=== PATIENT | male | born 1995 | race Caucasian/White ===

== ENCOUNTER → 2021-07-12 | Outpatient (CLI) | payer BC ==
--- NOTE | 2021-07-13 03:33 | MR ---
EXAMINATION TYPE: MR lumbar spine wo con DATE OF EXAM: 07/12/2021 COMPARISON: 11/19/2020 HISTORY: Low back pain, l4-5 cage Multiplanar multiecho imaging of the lumbar spine without contrast. Fairly normal alignment. There is old posterior fusion surgery at L5-S1 with metal artifact. There is some degenerative mild disc space narrowing at L4-5 and L5-S1 with decreased signal in the disks. Th ere is no lumbar compression fracture. There is small posterior disc bulging at L4-5. There is some m ild lateral recess stenosis due to facet arthropathy at L4-5. Lumbar nerve roots appear normal. There is no paraspinal mass. There is no evidence of focal bone destruction. IMPRESSION: Previous surgery. Spondylotic changes at L4-5 and L5-S1. Mild lateral recess stenosis due to facet ar thropathy at L4-5. No significant change compared to old exam.
== END | disposition home or self-care (01) ==
LOC: RADMRIMAIN 16:32
PROVIDERS: ATTEND Orthopaedic Surgery
DX: M48.061 Spinal stenosis, lumbar region without neurogenic claudication (principal); M46.96 Unspecified inflammatory spondylopathy, lumbar region
CPT/HCPCS: 72148

== ENCOUNTER → 2022-07-12 | Outpatient (CLI) | payer BC ==
[2022-07-12 23:08] LABS: Basophils # (A) 0.05 X 10*3/uL (0.00-0.10); Basophils % (A) 0.7 %; Eosinophils # (A) 0.13 X 10*3/uL (0.04-0.35); Eosinophils % (A) 1.9 %; HCT 47.3 % (39.6-50.0); HGB 15.8 g/dL (13.0-17.0); Immature Grans, Automated 0.4 %; Lymphocytes # (A) 2.74 X 10*3/uL (0.90-5.00); Lymphocytes % (A) 39.1 %; MCH 29.7 pg (27.0-32.0); MCHC 33.4 g/dL (32.0-37.0); MCV 88.9 fL (80.0-97.0); Mean Platelet Volume 9.5 fL (9.5-12.2); Monocytes # (A) 0.52 X 10*3/uL (0.20-1.00); Monocytes % (A) 7.4 %; NRBC Per 100 WBC 0 /100 WBCS (0.0-0.0); Neutrophils # (A) 3.53 X 10*3/uL (1.80-7.70); Neutrophils % (A) 50.5 %; Platelet Count 300 X 10*3/uL (140-440); RBC 5.32 X 10*6/uL (4.40-5.60); RDW 12.2 % (11.5-14.5)
== END | disposition home or self-care (01) ==
LOC: LABPAT 16:05
PROVIDERS: ATTEND Surgery
DX: Z01.812 Encounter for preprocedural laboratory examination (principal); K40.90 Unilateral inguinal hernia, without obstruction or gangrene, not specified as recurrent
CPT/HCPCS: 85025

== ENCOUNTER → 2022-12-19 | Outpatient (CLI) | payer BC ==
--- NOTE | 2022-12-19 08:23 | US ---
EXAMINATION TYPE: US groin RT DATE OF EXAM: 12/19/2022 COMPARISON: NONE CLINICAL INDICATION: Male, 27 years old with history of R10.31; recent hernia repair on the left. On the right. TECHNIQUE: Multiple sonographic images of the right inguinal region without and with Valsalva maneuv er. Comparison images to the contralateral side. FINDINGS: No discrete inguinal hernia is identified on the right side. Valsalva maneuver was utilize d. No abnormal anterior bulging. No residual hernia identified on the contralateral comparison side. IMPRESSION: No inguinal hernia demonstrated by ultrasound at this time.
== END | disposition home or self-care (01) ==
LOC: RADUSWWP 07:56
PROVIDERS: ATTEND Family Medicine
DX: R10.31 Right lower quadrant pain (principal)

== ENCOUNTER → 2023-01-10 | Outpatient (CLI) | payer BC ==
--- NOTE | 2023-01-10 09:32 | CT ---
EXAMINATION TYPE: CT abdomen pelvis w con DATE OF EXAM: 01/10/2023 COMPARISON: NONE HISTORY: 27-year-old male K57.32, LLQ pain TECHNIQUE: Contiguous axial scanning of the abdomen and pelvis following administration of 100 ml Iso bree 300 IV contrast. Coronal/sagittal reconstructions performed. CT DLP: 363.4 mGycm Automated exposure control for dose reduction was used. FINDINGS: LUNG BASES: No significant abnormality is appreciated. LIVER/GB: No significant abnormality is appreciated. PANCREAS: No significant abnormality is seen. SPLEEN: No significant abnormality is seen. ADRENALS: No significant abnormality is seen. KIDNEYS: No significant abnormality is seen. BOWEL: No dilated small bowel, free fluid, or free air. There is limitation in assessment of the lowe r abdomen and pelvis due to patient breathing at this point in the scan. There seems to be some mild circumferential wall thickening along the length of the sigmoid colon, axial image 62 and 66. Moderat e stool distention distal sigmoid colon and rectum. No significant pericolonic inflammatory change. N o significant diverticular change is seen. Normal appendix. LYMPH NODES: No significant abnormality is seen. OTHER: Suspect prior left inguinal hernia mesh repair. Otherwise, no significant abnormality is seen. PELVIS: Borderline enlarged at 4.2 cm. Right-sided pelvic phleboliths. No abnormal fluid collection i n the pelvis or pelvic lymphadenopathy. BONES: Status post L5-S1 anterior and posterior lumbar fusion change. IMPRESSION: 1. MODERATE STOOL WITHIN THE DISTAL SIGMOID AND RECTUM. 2. BREATHING MOTION CAUSING SOME LIMITATION IN ASSESSMENT OF THE LOWER ABDOMEN AND PELVIS. THERE SEEM S TO BE MILD CIRCUMFERENTIAL WALL THICKENING ALONG THE LENGTH OF THE SIGMOID COLON THAT COULD REPRESE NT A NONSPECIFIC MILD COLITIS. NO SIGNIFICANT DIVERTICULOSIS OR EVIDENCE OF ACUTE DIVERTICULITIS. 3. PRIOR LEFT INGUINAL MESH REPAIR.
== END | disposition home or self-care (01) ==
LOC: RADCTMAIN 07:10
PROVIDERS: ATTEND Surgery
DX: K40.90 Unilateral inguinal hernia, without obstruction or gangrene, not specified as recurrent (principal); K57.32 Diverticulitis of large intestine without perforation or abscess without bleeding
CPT/HCPCS: 74177; Q9967

== ENCOUNTER → 2023-03-28 | Outpatient (CLI) | payer BC ==
--- NOTE | 2023-03-28 13:08 | MR ---
Site of the power issues so chemotherapy will check related to EXAMINATION TYPE: MR lumbar spine wo c on DATE OF EXAM: 03/28/2023 12:28 PM COMPARISON 07/12/21 HISTORY: Low back pain, hx of L4 surgery of the lumbar spine was performed. L1-L2: Normal disc appearance without desiccation. No herniation, protrusion or disc bulging. No ca nal stenosis is present. Foramina are patent bilaterally. L2-L3: Normal disc appearance without desiccation. No herniation, protrusion or disc bulging. No ca nal stenosis is present. Foramina are patent bilaterally. L3-L4: Normal disc appearance without desiccation. Mild posterior disc bulging. No evidence of hernia tion or central stenosis. No canal stenosis is present. Foramina are patent bilaterally. L4-L5: Mild disc desiccation noted with posterior disc bulge and annular tear mild effacement of vent ral thecal sac. Mild bilateral lateral recess stenosis. No evidence for central stenosis. L5-S1: Fusion L5-S1 with pedicular screws in place . No evidence for recurrent process. No central s tenosis or foraminal encroachment. Normal postoperative alignment. Lumbar segments are intact. No paraspinal masses are identified. Conus medullaris has a normal appe arance. IMPRESSION: 1. Stable postoperative changes at L5-S1. 2. Disc desiccation with annular tear and disc bulging at L4-5 and bilateral lateral recess stenosis.
== END | disposition home or self-care (01) ==
LOC: RADMRIMAIN 11:22
PROVIDERS: ATTEND Orthopaedic Surgery
DX: M48.061 Spinal stenosis, lumbar region without neurogenic claudication (principal); M51.36 Other intervertebral disc degeneration, lumbar region
CPT/HCPCS: 72148

== ENCOUNTER → 2023-06-10 | Outpatient (CLI) | payer BC ==
[2023-06-10 14:25] VITALS: BP 145/91; PULSE 66; RESP 16
--- NOTE | 2023-06-10 14:26 | P.PAINPG ---
PQRS Measure Charge Sheet Comment: HISTORY OF PRESENT ILLNESS: A 27 yr old male as a referral from Dr Aldridge presents today w severe and chronic LBP x 5 mo secondary to for evaluation. Pt states pain level is provoked at 8/10 in intensity, constant, localized in the lower lumbar spine, predominantly axial, stabbing in character w occasional shooting pain towards the R hip, buttocks an RLE. Pain is provoked by sitting for periods of 30 min or more. Pain is alleviated by PT in 2019, physician guided home exercises/ stretches 5 times weekly since 2019, heat, ice, medications (Ibu), repositioning and rest. Oswestry axial pain score at 19. PMH: OA PSH: Colonoscopy (2022, L Inguinal Hernia Repair (2022), L5-S1 Fusion/ Hardware, RUE Fracture/ Resetting SH: Negative x3 FH: Non contributory All: See list Meds: See list REVIEW OF ORGAN SYSTEMS: CONSTITUTIONAL: No fevers or chills. No recent weight loss. NEUROLOGICAL: + numbness and tingling along the distal extremities. No seizure disorders or headaches. MUSCULOSKELETAL: + pain PSYCHIATRIC: Denies current depression or suicidal thoughts. Physical Examinations : Constitutional : Cooperative , not in acute distress . Neurologic : Cranial nerve II to XII intact. No focal neurological deficits. Psychiatric : alert & oriented x 3. Matching mood & appropriate affect. Judgment & insight intact. Musculoskeletal : Cervical Spine Motor strength in the deltoid and biceps: Normal right side. Normal Left side Motor strength biceps and the wrist extensors: Normal right side . Normal left side Motor strength in the triceps muscle: Normal right side. Normal left side Deep tendon reflexes: Normal at the biceps. Normal at Brachioradialis. Normal at triceps Vertebral body tenderness to deep palpation over Cervical facet loading test: positive bilaterally Spurling test: positive bilaterally Neck distraction test: positive bilaterally Mitch sign: positive bilaterally Lumbar spine Motor strength lower extremities ,thigh and legs 5/5 Right side , 5/5 Left side Deep tendon reflexes : Normal Knee Jerk. Normal Ankle Jerk Vertebral body tenderness over L4 Butterfield Test positive Lumbar facet Loading Test: positive Right / positive Left Range of motion of the lumbar spine Flexion 30 degrees, extension 10 degrees Straight Leg Raise test: Left/ Right positive at <40 degrees Lety test: positive right / positive left. Severe tenderness over the Sacroiliac joint on the Right / Left sides Gaenslen test: positive bilaterally Seated flexion test: positive bilaterally. Sacral spine : Severe tenderness over the Sacroiliac joint: right side / left side Range of motion: Flexion of the lumbar spine <60 degrees Range of motion: Extension of the lumbar spine <20 degrees Gaenslen's Test positive Lety test: positive right side / left side Thigh Thrust Test Sacral Thrust Test Imaging: MRI noncontrast of the lumbar spine from 03/28/23 reviewed Assessment/ Plan : Lumbar DDD Recommendation o f MICHELLE L4-L5 #1. May need a series of injections for optimal pain relief. Risks, benefits of procedure discussed and patient verbalized understanding. Admits to anti- coagulant use or medical history of diabetes. Protocol for discontinuation/ continuation of medications sarah procedure discussed. All questions answered. I have spent greater than 30 minutes on patient care today. Dr Cox was available by phone for the evaluation of this patient. The time was used to review the medical records including relevant urine studies and Prescription history (MAPs), review of the available imaging, evaluation and examination of the patient, coordination of care with the medical staff and if applicable referring physicians, as well as creation of the medical record Home Medications: Ambulatory Orders Ibuprofen [Motrin] 800 mg PO HS PRN 07/17/22 Controlled Substance Measures - Controlled Substance Measures Is patient prescribed a controlled substance at discharge?: No
== END ==
LOC: PNWHC3 13:58
PROVIDERS: ATTEND Specialist
DX: M51.16 Intervertebral disc disorders with radiculopathy, lumbar region (principal); M19.90 Unspecified osteoarthritis, unspecified site
CPT/HCPCS: 99211

== ENCOUNTER → 2023-06-12 | Outpatient (CLI) | payer BC ==
--- NOTE | 2023-06-13 09:33 | MR ---
EXAMINATION TYPE: MR lumbar spine wo con DATE OF EXAM: 06/12/2023 8:12 AM CLINICAL INDICATION:Male, 27 years old with history of M54.50 low back pain; Lower back pain, into bu ttocks and down right leg. Hx surgery. COMPARISON: None TECHNIQUE: Multi planar, multi sequence imaging was performed utilizing: T1-weighted, T2-weighted, a nd turbo inversion recovery imaging of the lumbar spine. IV Contrast: cc . (None if empty) FINDINGS: Alignment: The lumbar vertebral bodies have preserved heights and alignment. Cord: The conus medullaris and the distal spinal cord appear unremarkable with regards to their signa l intensity and morphology. Bones/Discs: Postsurgical changes with fixation hardware L5-S1. There is discectomy changes also pres ent. Multilevel degeneration with osteophyte formation and facet joint arthropathy. Mild disc desicca tion most pronounced at L4-L5. T12-L1: No evidence of significant spinal canal stenosis or neural foraminal stenosis. L1-L2: No evidence of significant spinal canal stenosis or neural foraminal stenosis. L2-L3: No evidence of significant spinal canal stenosis or neural foraminal stenosis. L3-L4: Central disc protrusion with out significant spinal canal stenosis. The neural foramen are pat ent. L4-L5: Disc bulge and facet joint arthropathy result in mild spinal canal and mild bilateral neural f oraminal stenosis. L5-S1: Post fixation changes. Discectomy changes noted. Facet joint arthropathy without significant n eural foraminal stenosis. The spinal canal is patent. No significant spinal canal or neural foraminal stenosis in the remainder of the visualized levels. Other findings: None. IMPRESSION: 1. L3-L4 central disc protrusion without significant spinal canal stenosis. 2. Post fixation changes at L5-S1 without significant spinal canal or neural foraminal stenosis. 3. No evidence of fracture.
== END | disposition home or self-care (01) ==
LOC: RADMRIMAIN 07:37
PROVIDERS: ATTEND Orthopaedic Surgery
DX: M51.26 Other intervertebral disc displacement, lumbar region (principal); Z98.890 Other specified postprocedural states
CPT/HCPCS: 72148

== ENCOUNTER 2023-06-19 06:27 | Day surgery (SDC) | payer BC ==
[2023-06-19] MEDS ORDERED: LACTATED RINGERS 1,000 ML IV SCH (06:43)
[2023-06-19 06:52] VITALS: TEMP 97.4
[2023-06-19] MEDS ORDERED: methylPREDNISolone ACETATE 80 MG/ML 1 ML VIAL ONE (07:12)
[2023-06-19] MEDS ORDERED: IOPAMIDOL M300 15ML VIAL ONE (07:12)
[2023-06-19] MEDS ORDERED: ROPIVACAINE 5MG/ML 20ML VIAL ONE (07:12)
--- NOTE | 2023-06-19 07:36 | P.PCN ---
Description of Procedure: Preprocedure diagnosis. Post laminectomy syndrome. Lumbar radiculopathy. Postprocedure diagnosis. As above. Procedure done. Injection of radial contrast material into the caudal epidural space. Caudal epidurogram, interpretation of caudal epidurogram, caudal epidural steroid injection under fluoroscopic guidance. Anesthesia. Local infiltration with local anesthetics. In OR, continuous pulse ox, EKG, blood pressure and verbal communication was maintained. Blood loss. None. Indication. Discussed with the patient procedure, alternatives, complications which may including infection bleeding and nerve damage aggravation of pain all of which could be permanent. Patient understands and questions were answered. Procedure note. After getting consent patient in OR in prone position. Back prepped with chlorhexidine 3 times and draped in sterile fashions. 10 mL of 1% lidocaine injected subcutaneously. Under AP and crosstable lateral view of the fluoroscope, 20-gauge Tuohy needle was introduced through the sacral hiatus into caudal epidural space. After needle position confirmation by AP and crosstable lateral view, 5 mL of Omnipaque 300 radiocontrast material injected which was noted into the caudal epidural space. No contrast was noted into the intrathecal or intravascular space. After repeat negative aspiration 10 mL of solution injected which consists of 9 mL of preservative-free normal saline mixed with 1 mL of 80 mg Depo-Medrol. Tuohy needle was taken out and bandages applied. Disposition. Patient tolerated the procedure well. No complication. Discharged home in stable condition.
[2023-06-19 08:03] VITALS: BP 124/74; PULSE 63; RESP 20
--- NOTE | 2023-06-19 12:36 | FL ---
EXAMINATION TYPE: FL guided pain mgmt statistic DATE OF EXAM: 06/19/2023 FLUOROSCOPY Fluoroscopy time of 5 seconds was used during a caudal injection. 2 image/s document/s the procedure . [id number] mGym2
== END 2023-06-19 08:00 ==
LOC: ORPAIN 06:27
PROVIDERS: ATTEND Pain Medicine Interventional Pain Medicine
DX: M96.1 Postlaminectomy syndrome, not elsewhere classified (principal); M54.16 Radiculopathy, lumbar region
CPT/HCPCS: 62323; J1040; Q9967; J2795

== ENCOUNTER → 2023-07-03 | Outpatient (CLI) | payer BC ==
[2023-07-03 17:24] LABS: Egg White IgE <0.10 kU/L; Peanut IgE <0.10 kU/L; Shrimp IgE <0.10 kU/L; Soybean IgE <0.10 kU/L; Walnut IgE (Food) <0.10 kU/L
[2023-07-04 11:49] LABS: Crab IgE <0.10 kU/L (<0.10); Crab IgE Class CLASS 0; Lettuce IgE Class CLASS 0; Pork IgE Class CLASS 0
[2023-07-04 11:50] LABS: Beef IgE <0.10 kU/L (<0.10); Beef IgE Class CLASS 0; Potato IgE <0.10 kU/L (<0.10); Potato IgE Class CLASS 0
[2023-07-04 11:51] LABS: Onion IgE <0.10 kU/L (<0.10); Onion IgE Class CLASS 0; Salmon IgE <0.10 kU/L (<0.10); Salmon IgE Class CLASS 0; Yeast Bakers/Brew IgE <0.10 kU/L (<0.10); Yeast Bakers/Brew IgE Class CLASS 0
[2023-07-04 11:52] LABS: Apple IgE Class CLASS 0; Oat IgE Class CLASS 0
[2023-07-04 11:53] LABS: Egg Yolk IgE Class CLASS 0; Gluten IgE Class CLASS 0; Lobster IgE <0.10 kU/L (<0.10); Lobster IgE Class CLASS 0
[2023-07-04 11:54] LABS: Banana IgE Class CLASS 0; Celery IgE <0.10 kU/L (<0.10); Celery IgE Class CLASS 0; Chicken IgE Class CLASS 0; Chocolate IgE Class CLASS 0; Coffee IgE <0.10 kU/L (<0.10); Coffee IgE Class CLASS 0
[2023-07-04 11:55] LABS: Tea IgE <0.10 kU/L (<0.10); Tea IgE Class CLASS 0
== END | disposition home or self-care (01) ==
LOC: LABWHC1 10:15
PROVIDERS: ATTEND Otolaryngology
DX: L50.0 Allergic urticaria (principal); J30.89 Other allergic rhinitis; B44.89 Other forms of aspergillosis
CPT/HCPCS: 36415; 86003

== ENCOUNTER 2024-11-24 22:03 | Emergency (ER) | payer BC ==
--- NOTE | 2024-11-24 22:12 | ED ---
Back Pain HPI - General Source: patient (n), family, RN notes reviewed, old records reviewed Mode of arrival: ambulatory Limitations: no limitations <Ilsa Hampton - Last Filed: 11/24/24 23:46> <Bar Haddad - Last Filed: 11/25/24 01:45> - General Chief Complaint: Back Pain/Injury Stated Complaint: Low Back Pain Time Seen by Provider: 11/24/24 22:11 - History of Present Illness Initial Comments: 28-year-old male presented the ER for evaluation of lumbar back pain. Patient reports 6 years ago he had lumbar disc removed with hardware placed at [facility]. He states since then he has been following up with orthopedic spine surgeon, . He did receive a caudal injection approximately 1 year ago, per patient. Patient reports for about 1 week he has been experiencing increasingly worsening lumbar back pain. He states he has back pain at baseline but this pain currently feels different. He does report mild paresthesias to right lower extremity. He states his right lower extremity feels "weak". Patient reports last week he was lifting a heavy trailer hitch into his truck b ut states he does this all the time. He denies any fevers, chills, bowel or bladder incontinence/retention, saddle paresthesias or history of IV drug abuse. Patient has taken [id number] ibuprofen with minimal relief of symptoms. Family, bedside, states patient was attempting to go to the grocery store to get milk and was unable to make it back to the vehicle given pain. No other complaints (Ilsa Hampton) - Related Data Home Medications Medication Instructions Recorded Confirmed Ibuprofen [Motrin] 800 mg PO HS PRN 07/17/22 06/19/23 Previous Rx's Medication Instructions Recorded Cyclobenzaprine [Flexeril] 10 mg PO TID PRN #15 tab 11/25/24 predniSONE 50 mg PO DAILY #5 tab 11/25/24 Allergies Allergy/AdvReac Type Severity Reaction Status Date / Time No Known Allergies Allergy Verified 11/24/24 22:08 Review of Systems ROS Other: All systems not noted in ROS Statement are negative. <Ilsa Hampton - Last Filed: 11/24/24 23:46> ROS Other: All systems not noted in ROS Statement are negative. <Dedoe,Bar M - Last Filed: 11/25/24 01:45> ROS Statement: Those systems with pertinent positive or pertinent negative responses have been documented in the HPI. Past Medical History Past Medical History: No Reported History Additional Past Medical History / Comment(s): having severe left sided abdominal pain on ct scan shows inflammation , back pain increased History of Any Multi-Drug Resistant Organisms: None Reported Past Surgical History: Back Surgery, Hernia Repair, Orthopedic Surgery Additional Past Surgical History / Comment(s): fx arm resetting Past Anesthesia/Blood Transfusion Reactions: No Reported Reaction Past Psychological History: No Psychological Hx Reported Smoking Status: Never smoker Past Alcohol Use History: None Reported Past Drug Use History: None Reported - Past Family History Father Family Medical History: No Reported History <Ilsa Hampton - Last Filed: 11/24/24 23:46> General Exam Limitations: no limitations General appearance: alert, in no apparent distress Neck exam: Present: normal inspection. Absent: tenderness, meningismus, lymphadenopathy Respiratory exam: Present: normal lung sounds bilaterally. Absent: respiratory distress, wheezes, rales, rhonchi, stridor Cardiovascular Exam: Present: regular rate, normal rhythm, normal heart sounds. Absent: systolic murmur, diastolic murmur, rubs, gallop, clicks Extremities exam: Present: normal inspection, full ROM, tenderness (L4-L5), normal capillary refill (2+ bilateral DP pulses.), other Neurological exam: Present: alert, oriented X3, CN II-XII intact Skin exam: Present: warm, dry, intact, normal color. Absent: rash <Ilsa Hampton - Last Filed: 11/24/24 23:46> Course Vital Signs 11/24/24 11/24/24 11/25/24 22:05 23:00 00:59 Temperature 98.1 F 98.3 F Pulse Rate 53 L 50 L 57 L Respiratory 16 18 16 Rate Blood Pressure 135/82 115/84 121/67 O2 Sat by Pulse 100 100 99 Oximetry Medical Decision Making <Ilsa Hampton - Last Filed: 11/24/24 23:46> <Bar Haddad - Last Filed: 11/25/24 01:45> - Medical Decision Making Was pt. sent in by a medical professional or institution (, PA, MANAGER [employer], urgent care, hospital, or custodial...) When possible be specific @ -No Did you speak to anyone other than the patient for history (EMS, parent, family, police, friend...)? What history was obtained from this source @ -Family, bedside, aiding in HPI past medical history. Did you review nursing and triage notes (agree or disagree)? Why? @ -I reviewed and agree with nursing and triage notes Were old charts reviewed (outside hosp., previous admission, EMS record, old EKG, old radiological studies, urgent care reports/EKG's, custodial records)? Report findings @ -No old charts were reviewed Differential Diagnosis (chest pain, altered mental status, abdominal pain women, abdominal pain men, vaginal bleeding, weakness, fever, dyspnea, syncope, headache, dizziness, GI bleed, back pain, seizure, CVA, palpatations, mental health, musculoskeletal)? @ -Differential Back Pain:Strain, zoster, cauda equina syndrome, epidural abscess, vertebral osteomyelitis, discitis, fracture, subluxation, disc herniation, DJD, spinal stenosis, dissection, AAA, pancreatitis, peptic ulcer disease, pyelonephritis, kidney stone, this is not meant to be an all-inclusive list. EKG interpreted by me (3pts min.). @ -[None done X-rays interpreted by me (1pt min.). @ -None done CT interpreted by me (1pt min.). @ -Pending U/S interpreted by me (1pt. min.). @ -None done What testing was considered but not performed or refused? (CT, X-rays, U/S, labs)? Why? @ -None What meds were considered but not given or refused? Why? @ -None Did you discuss the management of the patient with other professionals (professionals i.e. , PA, MA[employer]GER [employer], lab, RT, psych nurse, social service liaison, [employer], teacher, bsa/aml compliance officer, community case manager)? Give summary @ -No Was smoking cessation discussed for >3mins.? @ -No Was critical care preformed (if so, how long)? @ -No Were there social determinants of health that impacted care today? How? (Homelessness, low income, unemployed, alcoholism, drug addiction, transportation, low edu. Level, literacy, decrease access to med. care, [facility], rehab)? @ -No Was there de-escalation of care discussed even if they declined (Discuss DNR or withdrawal of care, Hospice)? DNR status @ -No What co-morbidities impacted this encounter? (DM, HTN, Smoking, COPD, CAD, Cancer, CVA, ARF, Chemo, Hep., AIDS, mental health diagnosis, sleep apnea, morbid obesity)? @ -Prior lumbar spine surgery Was patient admitted / discharged? Hospital course, mention meds given and route, prescriptions, significant lab abnormalities, going to OR and other pertinent info. @ -28 year old male presenting to the ER for evaluation of back pain. Vitals stable. Patient is neurovascular intact with no red flag back pain symptoms. CT lumbar spine obtained and pending at time of signout to Bar Haddad PA-C. Disposition pending. (Ilsa Hampton) Was patient admitted / discharged? Hospital course, mention meds given and route, prescriptions, significant lab abnormalities, going to OR and other pertinent info. @ -Discharge patient has no focal weakness no red flag symptoms. Patient has minimal radicular symptoms she does have noted disc bulging above his prior surgical site. There is some effacement. Patient feels comfortable and was requesting discharge prior to CT being read. We did discuss steroids, close follow-up with Dr. Aldridge as he sees. CT lumbar spine interpreted by me showing evidence of disc bulging, lateral left nerve effacement Undiagnosed new problem with uncertain prognosis? @ -No Drug Therapy requiring intensive monitoring for toxicity (Heparin, Nitro, Insulin, Cardizem)? @ -No Were any procedures done? @ -No Diagnosis/symptom? @ -Lumbar disc bulge lumbar pain Acute, or Chronic, or Acute on Chronic? @ -Acute Uncomplicated (without systemic symptoms) or Complicated (systemic symptoms)? @ -Uncomplicated Side effects of treatment? @ -No Exacerbation, Progression, or Severe Exacerbation? @ -No Poses a threat to life or bodily function? How? (Chest pain, [place], [place], pneumonia, PE, COPD, DKA, ARF, appy, cholecystitis, CVA, Diverticulitis, Homicidal, Suicidal, threat to staff... and all critical care pts) @ -No (Bar Haddad) Disposition <Ilsa Hampton - Last Filed: 11/24/24 23:46> Is patient prescribed a controlled substance at d/c from ED?: No Time of Disposition: 00:49 <Bar Haddad M - Last Filed: 11/25/24 01:45> Clinical Impression: Strain of lumbar region, Bulging disc Disposition: HOME SELF-CARE Condition: Stable Instructions (If sedation given, give patient instructions): Acute Low Back Pain (ED) Additional Instructions: Please return to the Emergency Department if symptoms worsen or any other concerns. Prescriptions: Cyclobenzaprine [Flexeril] 10 mg PO TID PRN #15 tab PRN Reason: Muscle Spasm predniSONE 50 mg PO DAILY #5 tab Referrals: José Miguel Aldridge DO [Doctor of Osteopathic Medicine] - 1-2 days
[2024-11-24] MEDS: KETOROLAC 15 MG/ML 1 ML VIAL IM STA (22:31)
[2024-11-24] MEDS: ORPHENADRINE 30 MG/ML 2 ML VIAL IM STA (22:31)
[2024-11-24] MEDS: LIDOCAINE 4% PATCH TOPICAL ONE (22:32)
--- NOTE | 2024-11-25 00:48 | CT ---
EXAM: CT Lumbar Spine Without Intravenous Contrast CLINICAL HISTORY: Back pain r sided to RLE hx fusion TECHNIQUE: Axial computed tomography images of the lumbar spine without intravenous contrast. CTDI is 20.5 mGy and DLP is 726.6 mGy-cm. This CT exam was performed using one or more of the following dose reduction techniques: automated exposure control, adjustment of the mA and/or kV according to patient size, and/or use of iterative reconstruction technique. COMPARISON: MRI lumbar spine 06/12/2023 FINDINGS: Vertebrae: The lumbar vertebral bodies are intact without acute traumatic injury. Anterior and posterior fusion noted at L5-S1 level. There is straightening of the normal lumbar lordosis. The pedicles, facet joints, spinous processes and transverse processes are intact. Discs/spinal canal/neural foramina: As above. Evaluation of the central canal is limited without intrathecal contrast. However, diffuse annular disc bulge with a central posterior broad-base protrusive component is noted at L3-4 level. The posterior disc protrusion is estimated at 4 mm with mass effect on the lateral recess, left greater than right. The disc protrusion appears to be larger than on the previous MRA examination. Diffuse circumferential disc bulge noted at L4- 5 level, similar to the previous examination. Soft tissues: No significant acute traumatic paraspinal soft tissue abnormality. IMPRESSION: 1. No acute osseous traumatic injury or significant acute traumatic abnormal alignment involving the lumbar spine. Anterior and posterior fusion at L5-S1. 2. Evaluation of the central canal is limited without intrathecal contrast. However, diffuse annular disc bulge with a central posterior broad-base protrusive component is noted at L3-4 level. The posterior disc protrusion is estimated at 4 mm with mass effect on the lateral recess, left greater than right. The disc protrusion appears to be larger than on the previous MRA examination. If there are radicular symptoms, recommend repeat MRI for further analysis at this level.
[2024-11-25] MEDS: ACET/COD 300 MG/30 MG STARTER PACK 6 TAB BTL PO STA (00:56)
[2024-11-25 01:00] VITALS: BP 121/67; PULSE 57; RESP 16; TEMP 98.3
== END 2024-11-25 01:00 | disposition home or self-care (01) ==
LOC: EC 22:03
DX: S39.012A Strain of muscle, fascia and tendon of lower back, initial encounter (principal); M51.26 Other intervertebral disc displacement, lumbar region; X50.0XXA Overexertion from strenuous movement or load, initial encounter
CPT/HCPCS: 72131; 99284; 96372 ×2; J2360; J1885